=== PATIENT | female | born 1965 | race Caucasian/White ===

== ENCOUNTER 2022-09-26 06:51 | Emergency (ER) | payer OTHER ==
[~2022-09-26] VITALS: Ht 154.9 cm; Wt 77.1 kg
--- NOTE | 2022-09-26 07:25 | NUR ---
RECEIVED PT CAME FROM HOME C/O HEADACHE FOR 3 DAY ND RT SHOULDER PAIN FOR LONG TIME NO WEEKNESS ON NUBNNESS
--- NOTE | 2022-09-26 07:45 | NUR ---
SEEN BY DR. IGLESIAS
[2022-09-26] MEDS ORDERED: ACETAMINOPHEN ES 500 MG TABLET ONE (07:58)
[2022-09-26] MEDS ORDERED: ACETAMINOPHEN ES 500 MG TABLET PO ONE (08:00)
--- NOTE | 2022-09-26 09:15 | NUR ---
T CT SCAN OF HEAD
--- NOTE | 2022-09-26 09:55 | NUR ---
pt improving no pain
--- NOTE | 2022-09-26 10:10 | NUR ---
Patient discharged to home in stable condition. Written and verbal after care instructions given. Patient verbalizes understanding of instruction.
[2022-09-26 10:23] VITALS: BP 115/77
== END 2022-09-26 10:24 | disposition home or self-care (01) ==
LOC: ER 06:51
DX: R51.9 Headache, unspecified (principal); E11.9 Type 2 diabetes mellitus without complications
CPT/HCPCS: 70450-TC